=== PATIENT | female | born 1950 | race Caucasian/White ===

== ENCOUNTER 2016-09-27 19:40 | Emergency (ER) | payer MEDICAID, MEDICARE ==
[~2016-09-27] VITALS: Ht 167.6 cm; Wt 97.3 kg
[2016-09-27 19:44] VITALS: BP 122/83; PULSE 91; RESP 18; O2SAT 96
--- NOTE | 2016-09-27 22:42 | ED.REPORT ---
HPI-Eye Problem Date of Service Sep 27, 2016 ED Provider: Eugene Etienne MD A 66 year old female with a history of anxiety, depression and left iritis presents to the ED complaining of left eye pain. The pt began experiencing eye pain, redness and tearing five days ago, which has been intermittently present since. These symptoms worsened this morning and have persisted all day. Witch tito around the eye offered no relief. The pt was unable to get an appointment to see her primary care physician today, so decided to seek a medical evaluation in the ED. The pt denies any history of glaucoma, but experienced similar symptoms when she was diagnosed with iritis. She has been using retinal cream recently, which she believes may be related to her symptoms. Nursing Notes Stated Complaint: LEFT EYE PAIN, REDNESS Chief Complaint: Eye Nursing Notes Reviewed: Yes Allergies: Coded Allergies: No Known Allergies (Verified , 10/28/03) Uncoded Allergies: NKA (Allergy, Unknown, 10/28/03) No Known Allergies (Allergy, Unknown, 10/28/03) General Time Seen by MD: 22:42 Chief Complaint Left eye affected Hx Obtained From: Patient Arrived By: Walk-in Sudden in Onset?: No Onset Occurred: 5 days ago Symptom Duration: Intermittent Recent Healthcare: No recent hospitalization Similar Sx Previous: Yes Past Medical History Past Medical History left iritis anxiety depression chronic hip pain Past Surgical History bilateral hips low back Smoking History Current Every Day Smoker Social History Drug Use: THC Other Social History: Good social support Ambulatory Status Independent Review of Systems Review of Systems Note: left eye tearing Eyes: Reports: Eye pain left, Redness left Skin: Denies Rash Complete sys rev & neg: except as marked. Respiratory: Denies: Non-productive cough, Shortness of breath Cardiovascular: Denies: Chest pain GI: Denies: Abdominal pain Musculoskeletal: Denies: Back pain, Neck pain Physical Exam Initial Vital Signs Vital Signs (First) Date Time Temp Pulse Resp B/P Pulse Ox O2 Delivery O2 Flow Rate FiO2 09/27/16 19:44 35.8 91 18 122/83 96 Room Air Initial VS: Reviewed Head / Eyes: Atraumatic, Normocephalic, PERRL, EOMI injected left sclera no anterior chamber flare no crusting or purulence tearing of left eye no evident purulent discharge no abrasions or erosions evident General/Constitutional: Awake, Alert ENT: Atraumatic, Airway patent, Mucous membranes moist Skin: Atraumatic, Color NL, No rash, Warm, Dry Neurologic: Oriented X3, Speech NL, No motor deficits, No sensory deficits Neck: Atraumatic, Supple, Full range of motion Respiratory / Chest: Atraumatic, Breath sounds NL, Breath sounds = bilat, No respiratory distress Cardiovascular: Heart rate NL, Regular rhythm, Heart sounds NL Abdomen: Atraumatic, Soft, Non-tender Back: Atraumatic, Full range of motion Upper Extremity / MS: Atraumatic, Full range of motion Lower Extremity / Pelvis / MS: Atraumatic, Full range of motion Psychiatric: Affect NL, Mood NL Procedures Slit Lamp Exam no anterior chamber flare chamber pressure (three determinations): 17, 18, 19 Time: 22:50 Procedure Performed by: ED physician Which Eye: Left Eyelid / Conjunctiva / Sclera: Tear film clear, Tear film watery, Conjunctiva injected, Conjunctiva inflamed Cornea/Ant Chamber/Iris/Lens: Cornea normal, Ant chamb depth shallow, Iris round, Lens normal Vitreous / Retina / Optic Nerv: Ant vitreous clear Re-Eval/Medical Decision Med Decision/Clinical Course 66-year-old reportedly with a prior iritis more than ten years ago, presents with tearing and irritated left eye. This been intermittent, and worsening since Thursday. No purulent discharge. No injury recalled. However, she may have gotten retinol ointment in it applying around her eye daily. No other exposure. Does not wear contacts. Exam is reassuring, without flare or injection limbus. Pupil is round and reactive without evidence of synechia. Fluoroscopy is negative. This is either viral conjunctivitis or a chemical conjunctivitis secondary to retinol. Naphcon-A and follow-up with Dr. Robles Thursday. Pressures were tested and were well within normal limits with no evidence of glaucoma. Three determinations were seventeen, eighteen, nineteen. Source of Hx: Old records Re-Evaluation/Progress : Time of Eval: 22:50 Patient Status: Condition improved Re-Evaluation/Progress Note: Pt rechecked and slit lamp exam is performed without complication. The diagnosis and plan for discharge are discussed. The pt understands and agrees with the plan. All questions are addressed at this time. Counseled Regarding: Diagnosis, Lab results, Need for follow-up, When/why to return to ED Discharge & Departure Primary Impression: Conjunctivitis Conjunctivitis type: unspecified Laterality: left Qualified Code: H10.9 - Unspecified conjunctivitis Disposition: Home Discharge Condition All VS Reviewed: Yes Condition: Stable Patient Instructions: Conjunctivitis (ED) Additional Instructions: Do not use retinol anywhere near your eye. wash your hands very carefully after applying cream. Alternatively, use gloves and discard. Begin Naphcon-A 3-4 times daily as needed for eye irritation. Call Dr. White's office first thing Thursday for follow-up Thursday or Thursday. We do not find evidence of glaucoma today. We did not see evidence of white cells in the anterior chamber to suggest iritis. If you have worsening symptoms despite treatment, return here again. Referrals: Kelli Valdez PA-C (PCP) Eri Robles MD Scribe Attestation Portions of this note were transcribed by Brenden Mcleod. I, Dr. Etienne personally performed the history, physical exam and medical decision-making; I reviewed and confirmed the accuracy of the information in the transcribed note. Signed by: Ynes Rowe, 09/27/2016 and 2348. copies to: Eri Robles MD; Kelli Valdez PA-C, Christopher W MD Sep 27, 2016 22:42 BRENDEN MCLEOD Sep 27, 2016 23:02
[2016-09-27] MEDS ORDERED: Tetracaine 0.5% 4 mL Ophthalmic Solution ONE (22:45)
[2016-09-27] MEDS ORDERED: Fluorescein 0.6 mg Ophthalmic Strip ONE (22:45)
[2016-09-27] MEDS ORDERED: Fluorescein 0.6 mg Ophthalmic Strip LEFT_EYE ONE (22:50)
[2016-09-27] MEDS ORDERED: Tetracaine 0.5% 4 mL Ophthalmic Solution LEFT_EYE ONE (22:50)
[2016-09-27] MEDS ORDERED: 0.9% Sodium Chloride Inhalation Solution LEFT_EYE ONE (22:50)
[2016-09-27] MEDS ORDERED: Naphazoline/Pheniramine 5 mL Ophthalmic Solution LEFT_EYE PRN (23:25)
[2016-09-27] MEDS ORDERED: Naphazoline/Pheniramine 5 mL Ophthalmic Solution LEFT_EYE SCH (23:30)
[2016-09-27 23:43] VITALS: BP 127/62; PULSE 79; RESP 16; O2SAT 98
== END 2016-09-27 23:44 | disposition home or self-care (01) ==
LOC: SED 19:40
DX: H10.9 Unspecified conjunctivitis (principal); F41.8 Other specified anxiety disorders; F17.200 Nicotine dependence, unspecified, uncomplicated